=== PATIENT | female | born 1955 | race Two or more races ===

== ENCOUNTER → 2017-06-22 14:56 | Outpatient (CLI) | payer OTHER | END | disposition home or self-care (01) | LOC: PPHC 14:56 | DX: R05 Cough (principal); R50.9 Fever, unspecified; J02.9 Acute pharyngitis, unspecified; R53.1 Weakness ==

== ENCOUNTER 2018-01-25 11:08 | Outpatient (CLI) | payer OTHER | END 2018-01-25 11:20 | disposition home or self-care (01) | LOC: MAMO-SONO 11:08 | DX: Z12.31 Encounter for screening mammogram for malignant neoplasm of breast (principal); N60.11 Diffuse cystic mastopathy of right breast; N60.12 Diffuse cystic mastopathy of left breast; N61.0 Mastitis without abscess; R10.2 Pelvic and perineal pain; D25.9 Leiomyoma of uterus, unspecified ==

== ENCOUNTER 2019-02-02 12:14 | Outpatient (CLI) | payer OTHER | END 2019-02-02 12:59 | disposition home or self-care (01) | LOC: RAD 12:14 | DX: M25.561 Pain in right knee (principal); M25.562 Pain in left knee ==

== ENCOUNTER 2019-03-13 10:22 | Outpatient (CLI) | payer OTHER | END 2019-03-13 10:33 | disposition home or self-care (01) | LOC: MAMO-SONO 10:22 | DX: Z12.31 Encounter for screening mammogram for malignant neoplasm of breast (principal) ==

== ENCOUNTER 2019-05-08 10:45 | Emergency (ER) | payer OTHER ==
[~2019-05-08] VITALS: Ht 152.4 cm; Wt 59.0 kg
== END 2019-05-08 13:50 | disposition home or self-care (01) ==
LOC: ER 10:45
DX: K52.89 Other specified noninfective gastroenteritis and colitis (principal)

== ENCOUNTER → 2020-04-30 | Outpatient (CLI) | payer OTHER | END | disposition home or self-care (01) | LOC: MAMO-SONO 12:45 | PROVIDERS: ATTEND Physical Medicine & Rehabilitation | DX: Z12.31 Encounter for screening mammogram for malignant neoplasm of breast (principal); N64.4 Mastodynia ==

== ENCOUNTER 2020-05-22 13:33 | Outpatient (CLI) | payer OTHER | END 2020-05-22 13:38 | disposition home or self-care (01) | LOC: NUCLEAR 13:33 | PROVIDERS: ATTEND Obstetrics & Gynecology | DX: M81.0 Age-related osteoporosis without current pathological fracture (principal) ==

== ENCOUNTER 2020-05-30 11:48 | Outpatient (CLI) | payer OTHER | END 2020-05-30 12:00 | disposition home or self-care (01) | LOC: SONOGRAMA 11:48 → MAMO-SONO 14:15 | PROVIDERS: ATTEND Obstetrics & Gynecology | DX: N83.291 Other ovarian cyst, right side (principal); R10.2 Pelvic and perineal pain ==

== ENCOUNTER 2020-06-20 18:56 | Emergency (ER) | payer OTHER ==
[~2020-06-20] VITALS: Ht 154.9 cm; Wt 59.9 kg
== END 2020-06-20 20:27 | disposition home or self-care (01) ==
LOC: ER 18:56
DX: H66.92 Otitis media, unspecified, left ear (principal)

== ENCOUNTER 2021-05-27 10:42 | Outpatient (CLI) | payer OTHER | END 2021-05-27 10:58 | disposition home or self-care (01) | LOC: SONOGRAMA 10:42 | PROVIDERS: ATTEND Otolaryngology | DX: E04.8 Other specified nontoxic goiter (principal) ==

== ENCOUNTER 2021-07-07 13:03 | Outpatient (CLI) | payer OTHER | END 2021-07-07 13:23 | disposition home or self-care (01) | LOC: MAMO-SONO 13:03 | PROVIDERS: ATTEND Obstetrics & Gynecology | DX: N64.4 Mastodynia (principal); R10.2 Pelvic and perineal pain; Z01.419 Encounter for gynecological examination (general) (routine) without abnormal findings ==

== ENCOUNTER 2021-08-20 11:24 | Outpatient (CLI) | payer OTHER | END 2021-08-20 11:40 | disposition home or self-care (01) | LOC: SONOGRAMA 11:24 | PROVIDERS: ATTEND Specialist | DX: N83.209 Unspecified ovarian cyst, unspecified side (principal) ==

== ENCOUNTER 2022-03-31 11:50 | Outpatient (CLI) | payer OTHER | END 2022-03-31 11:57 | disposition home or self-care (01) | LOC: RAD 11:50 | DX: Z01.811 Encounter for preprocedural respiratory examination (principal) ==

== ENCOUNTER 2022-09-08 11:00 | Outpatient (CLI) | payer OTHER | END 2022-09-08 11:04 | disposition home or self-care (01) | LOC: RAD 11:00 | DX: Z12.31 Encounter for screening mammogram for malignant neoplasm of breast (principal); N64.4 Mastodynia; M70.51 Other bursitis of knee, right knee; M70.52 Other bursitis of knee, left knee; R10.2 Pelvic and perineal pain ==

== ENCOUNTER 2022-09-08 12:28 | Outpatient (CLI) | payer OTHER | END 2022-09-08 12:29 | disposition home or self-care (01) | LOC: NUCLEAR 12:28 | DX: Z01.419 Encounter for gynecological examination (general) (routine) without abnormal findings (principal) ==

== ENCOUNTER 2024-08-01 16:44 | Emergency (ER) | payer OTHER ==
[~2024-08-01] VITALS: Ht 154.9 cm; Wt 58.5 kg
[2024-08-01] MEDS ORDERED: SIMVASTATIN5 MG PO (18:19)
[2024-08-01] MEDS ORDERED: LACTOBACILLUS ACIDOPHILUS 1 CAP CAP PO STA (18:41)
[2024-08-01] MEDS ORDERED: LACTOBACILLUS ACIDOPHILUS 1 CAP CAP PO ONE (18:50)
[2024-08-01 19:00] LABS: HEMATOCRIT 38.6 % (36.0-45.00); HEMOGLOBIN 13.1 g/dL (12.0-15.00); MEAN CELL VOLUME 90.4 fL (80.00-100.00); MEAN CORPUSCULAR HEMOGLOBIN 30.6 pg (27.00-32.0); MEAN CORPUSCULAR HGB CONC 33.8 g/dl (32.0-36.0); PLATELET COUNT 317 K/uL (150-450); RED BLOOD COUNT 4.27 M/uL (4.00-6.00); RED CELL DISTRIBUTION WIDTH 12.8 % (11.5-14.5)
[2024-08-01 19:29] LABS: CALCIUM 9.6 mg/dL (8.5-10.1); CREATININE SERUM 0.89 mg/dL (0.55-1.02); GFR 63.26; POTASSIUM 4.21 mEq/L (3.5-5.1)
== END 2024-08-01 19:46 | disposition home or self-care (01) ==
LOC: ER 16:47
PROVIDERS: General Practice
DX: R10.84 Generalized abdominal pain (principal)